=== PATIENT | male | born 1995 | race Caucasian/White ===

== ENCOUNTER 2017-06-13 18:20 | Emergency (ER) | payer OTHER ==
--- NOTE | 2017-06-13 18:59 | UC ---
Shortness of Breath HPI - HPI Summary HPI Summary: 21 YEAR OLD MALE WITH ASTHMA PRESENTS FOR A REFILL OF HIS ALBUTEROL INHALER - History of Current Complaint Stated Complaint: RESPIRATORY Time Seen by Provider: 06/13/17 18:56 Hx Obtained From: Patient Onset/Duration: Sudden Onset Timing: Constant Current Severity: Moderate Aggrevating Factors: Allergens, Deep Breaths Alleviating Factors: Bronchodilators - Allergy/Home Medications Allergies/Adverse Reactions: Allergies Allergy/AdvReac Type Severity Reaction Status Date / Time Amoxicillin Allergy Unknown Verified 06/13/17 19:05 Reaction Details Review of Systems Constitutional: Negative Skin: Negative Eyes: Negative ENT: Negative Respiratory: Shortness Of Breath Cardiovascular: Negative Gastrointestinal: Negative Genitourinary: Negative Motor: Negative Neurovascular: Negative Musculoskeletal: Negative Neurological: Negative Psychological: Negative All Other Systems Reviewed And Are Negative: Yes Physical Exam Triage Information Reviewed: Yes Appearance: Well-Appearing Eye Exam: Normal ENT Exam: Normal Dental Exam: Normal Neck exam: Normal Neck: Positive: 1 Respiratory Exam: Normal Cardiovascular Exam: Normal Abdominal Exam: Normal Musculoskeletal Exam: Normal Neurological Exam: Normal Psychological Exam: Normal Skin Exam: Normal Shortness of Breath Dx - Differential Dx/Diagnosis Provider Diagnoses: ASTHMA. REFILL FOR ABLUTEROL INHALER Discharge - Discharge Plan Condition: Stable Disposition: HOME Prescriptions: Albuterol HFA INHALER* [Ventolin HFA Inhaler*] 1 puff INH Q6H PRN #1 mdi PRN Reason: Wheezing Patient Education Materials: Asthma (ED) Referrals: Non Staff,Doctor [Primary Care Provider] -
[2017-06-13 19:05] VITALS: BP 145/84
== END 2017-06-13 19:31 | disposition home or self-care (01) ==
LOC: UCCORT 18:20
DX: J45.909 Unspecified asthma, uncomplicated (principal); Z76.0 Encounter for issue of repeat prescription; Z88.1 Allergy status to other antibiotic agents
CPT/HCPCS: 99202; G0463